=== PATIENT | male | born 1995 | race Caucasian/White ===

== ENCOUNTER 2019-09-07 15:43 | Emergency (ER) | payer OTHER ==
[~2019-09-07] VITALS: Ht 177.8 cm; Wt 81.6 kg
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
[2019-09-07] MEDS ORDERED: IBUPROFEN 600 MG TABLET PO ONE ×2 (16:25→16:30)
--- NOTE | 2019-09-07 16:52 | NUR ---
XRAY AT BEDSIDE
--- NOTE | 2019-09-07 17:42 | NUR ---
Patient discharged to home in stable condition. Written and verbal after care instructions given. Patient verbalizes understanding of instruction and RX. Pt okay to book. vss. No acute distress noted. vss.
[2019-09-07 17:43] VITALS: BP 126/76
[2019-09-07] MEDS ORDERED: IV NS 0.9% 1,000 ML BAG IV ONE (22:30)
== END 2019-09-07 17:55 | disposition home or self-care (01) ==
LOC: ER 15:46
DX: S92.811A Other fracture of right foot, initial encounter for closed fracture (principal); S42.291A Other displaced fracture of upper end of right humerus, initial encounter for closed fracture; V00.131A Fall from skateboard, initial encounter; Y93.51 Activity, roller skating (inline) and skateboarding; Y92.89 Other specified places as the place of occurrence of the external cause; Y99.8 Other external cause status
CPT/HCPCS: 73030-TC; 73630-TC

== ENCOUNTER 2019-10-22 02:24 | Emergency (ER) | payer OTHER ==
[~2019-10-22] VITALS: Ht 167.6 cm; Wt 65.8 kg
[2019-10-22 02:27] VITALS: BP 147/83
== END 2019-10-22 04:23 ==
LOC: ER 02:28
DX: M79.671 Pain in right foot (principal)
CPT/HCPCS: 73630-TC

== ENCOUNTER 2019-11-20 08:44 | Emergency (ER) | payer OTHER ==
[~2019-11-20] VITALS: Ht 177.8 cm; Wt 73.5 kg
--- NOTE | 2019-11-20 08:59 | NUR ---
DR MCNAIR AT BEDSIDE FOR EVAL.
[2019-11-20] MEDS ORDERED: IBUPROFEN 600 MG TABLET PO ONE ×2 (09:00→09:18)
--- NOTE | 2019-11-20 09:18 | NUR ---
RADIOLOGY AT BEDSIDE FOR R FOOT XRAY.
[2019-11-20 10:27] VITALS: BP 132/88
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
== END 2019-11-20 10:28 | disposition home or self-care (01) ==
LOC: ER 08:54
DX: G89.29 Other chronic pain (principal); M79.674 Pain in right toe(s); M79.671 Pain in right foot
CPT/HCPCS: 73630-TC